=== PATIENT | female | born 1945 | race Caucasian/White ===

== ENCOUNTER → 2016-12-13 | Outpatient (CLI) | payer MEDICARE, BC ==
--- NOTE | 2016-12-17 12:48 | MM ---
Reason for exam: clinical finding. Last mammogram was performed 2 years and 5 months ago. History: Patient is postmenopausal. Reductions of both breasts, September 2009. Took estrogen for 6 years. Took progesterone for 6 years. Indicated problem(s): lump or thickening in the right breast. Physical Findings: Nurse did not find any significant physical abnormalities on exam. MG 3D Diag Mammo W/Cad NIVIA Bilateral CC and MLO view(s) were taken. XCCL view(s) were taken of the left breast. Prior study comparison: July 01, 2014, bilateral MG screening mammo w CAD. June 30, 2013, bilateral digital screening mammo w/CAD. June 29, 2012, CAD bilateral diagnostic mammogram. June 28, 2011, CAD bilateral diagnostic mammogram. There are scattered fibroglandular densities. Post mammoplasty changes bilaterally. Stable areas of asymmetric densities. No significant new findings when compared with previous films. These results were verbally communicated with the patient and result sheet given to the patient on 12/13/16. ASSESSMENT: Negative, BI-RAD 1 RECOMMENDATION: 1. Routine screening mammogram of both breasts in 1 year. 2. Manage patient on a clinical basis with regard to patient's right superior axillary palpable area that seems to correspond to an inflamed cutaneous lesion. 3. If any persisting palpable finding following treatment, patient can return for ultrasound. SAMI
== END | disposition home or self-care (01) ==
LOC: RADMAMWWP 06:56
PROVIDERS: ATTEND Family Medicine
DX: N63 Unspecified lump in breast (principal)
CPT/HCPCS: G0204; G0279

== ENCOUNTER 2017-11-14 11:48 | Inpatient (IN) | payer MEDICARE, BC ==
[2017-11-14] MEDS ORDERED: ACETAMINOPHEN TAB 500 MG TAB PO STA (12:48)
[2017-11-14] MEDS ORDERED: IPRATROPIUM-ALBUTEROL 3 ML NEB INHALATION STA (12:50)
[2017-11-14] MEDS ORDERED: SODIUM CHLORIDE 0.9% 1,500 ML IV ONE (12:51)
--- NOTE | 2017-11-14 12:52 | ED ---
SOB HPI - General Chief Complaint: Shortness of Breath Stated Complaint: Coughing up Blood, Pneumonia Time Seen by Provider: 11/14/17 12:32 Source: patient Mode of arrival: wheelchair Limitations: no limitations - History of Present Illness Initial Comments: Patient is a 72-year-old female presenting to the emergency department for shortness of breath. She was seen on Friday in urgent care and diagnosed with pneumonia. She was started on azithromycin and family states that since that time, she has been worsening. She admits to some chest pain with coughing only as well as fevers and chills. The shortness of breath has been worsening and she denies any abdominal complaints including nausea/vomiting/diarrhea or abdominal pain. She was seen in urgent care today and was advised to come emergency department for further evaluation. - Related Data Home Medications Medication Instructions Recorded Confirmed Acetaminophen Tab [Tylenol Tab] 1,000 mg PO BID 11/14/17 11/14/17 Aspirin EC [Ecotrin Low Dose] 81 mg PO DAILY 11/14/17 11/14/17 Benzonatate [Tessalon Perles] 100 mg PO TID PRN 11/14/17 11/14/17 Docusate [Colace] 100 mg PO HS 11/14/17 11/14/17 Furosemide [Lasix] 20 mg PO DAILY 11/14/17 11/14/17 Ipratropium [place] 0.06%Nasal 2 spray EA NOSTRIL QID PRN 11/14/17 11/14/17 [Atrovent Nasal 0.06%] Levothyroxine Sodium 25 mcg PO DAILY 11/14/17 11/14/17 Perindopril Erbumine [Aceon] 4 mg PO DAILY 11/14/17 11/14/17 Sertraline HCl [Zoloft] 50 mg PO DAILY 11/14/17 11/14/17 amLODIPine/ATORVASTATIN [Caduet 10 1 tab PO HS 11/14/17 11/14/17 mg-10 mg Tablet] Allergies Allergy/AdvReac Type Severity Reaction Status Date / Time chlorpheniramine Allergy Rash/Hives Verified 11/14/17 12:51 [From Tussionex] hydrocodone [From Tussionex] Allergy Rash/Hives Verified 11/14/17 12:51 Sulfa (Sulfonamide Allergy Rapid Verified 11/14/17 12:51 Antibiotics) Heart Rate amoxicillin AdvReac Nausea & Verified 11/14/17 12:51 Vomiting & Diarrhea Review of Systems ROS Statement: Those systems with pertinent positive or pertinent negative responses have been documented in the HPI. Constitutional: Negative for chills, fatigue and fever. HENT: Negative for congestion. Respiratory: Negative for chest tightness and wheezing. Positive for cough and shortness of breath Cardiovascular: Negative for and palpitations.positive for chest pain Gastrointestinal: Negative for abdominal pain. Negative for abdominal distention , diarrhea, nausea and vomiting. Genitourinary: Negative for dysuria. Musculoskeletal: Negative for back pain, neck pain and neck stiffness. Skin: Negative for color change. Neurological: Negative for dizziness, speech difficulty, weakness and light- headedness. Psychiatric/Behavioral: Negative for agitation and confusion. The patient is not nervous/anxious. ROS Other: All systems not noted in ROS Statement are negative. Past Medical History Past Medical History: Hyperlipidemia, Hypertension, Thyroid Disorder History of Any Multi-Drug Resistant Organisms: MRSA Date of last positivie culture/infection: Back in 2014 Past Surgical History: Tonsillectomy Additional Past Surgical History / Comment(s): Kidney repair, lower jaw surgery , carpal tunnel surgery, breast reduction, shoulder replacement Past Psychological History: Depression Smoking Status: Former smoker Past Alcohol Use History: None Reported Past Drug Use History: None Reported General Exam - General Exam Comments Initial Comments: Physical Exam Constitutional: Pt is oriented to person, place, and time. Pt appears well- developed and well-nourished. No distress. HENT: Head: Normocephalic and atraumatic. Eyes: EOM are normal. Neck: Normal range of motion. Neck supple. Cardiovascular: Tachycardia present, regular rhythm, S1 normal, S2 normal and normal heart sounds. Exam reveals no gallop and no friction rub. No murmur heard. Pulmonary/Chest: Effort normal and breath sounds normal. No tachypnea and no bradypnea. No respiratory distress. No wheezes or rales noted. Abdominal: Soft. Bowel sounds are normal. Pt exhibits no shifting dullness, no distension, no pulsatile liver, no fluid wave, no abdominal bruit and no ascites. There is no tenderness. There is no rigidity, no rebound, no guarding, no tenderness at McBurney's point and negative Abdul's sign. Musculoskeletal: Normal range of motion. Neurological: Pt is alert and oriented to person, place, and time. No cranial nerve deficit. Skin: Skin is warm and dry. No rash noted. Pt is not diaphoretic. No erythema. No pallor. Psychiatric: Pt has a normal mood and affect. Pt behavior is normal. Thought content normal. Limitations: no limitations Course Vital Signs 11/14/17 11/14/17 11/14/17 12:20 13:28 13:55 Temperature 100.1 F H Pulse Rate 112 H 78 80 Respiratory 20 16 Rate Blood Pressure 142/79 O2 Sat by Pulse 93 L 96 Oximetry 11/14/17 14:05 Temperature Pulse Rate 85 Respiratory Rate Blood Pressure O2 Sat by Pulse Oximetry Medical Decision Making - Medical Decision Making Laboratory studies revealed that there is no significant leukocytosis and potassium was slightly low at 3.2. Additionally as it was not elevated. Outside chest x-ray showed possible infiltrate on the right lower side and therefore the patient was started on Rocephin and azithromycin. Additionally, patient did test influenza be positive but was out of the window for Tamiflu treatment. However, the patient was fairly tachypnea upon arrival to the emergency Department and tachycardic as well. She received a 1.5 L bolus and 30 mL per KG bolus was not initiated as her heart status was unknown. Because of her age as well as Felty, it is felt that the patient is at risk for acute decompensation if discharge. Therefore she will be placed in observation for continued treatment. - Lab Data Result diagrams: 11/14/17 13:20 11/14/17 13:20 Lab Results 11/14/17 11/14/17 11/14/17 Range/Units 13:20 13:20 13:20 WBC 5.9 (3.8-10.6) k/uL RBC 3.71 L (3.80-5.40) m/uL Hgb 11.8 (11.4-16.0) gm/dL Hct 34.5 (34.0-46.0) % MCV 93.1 (80.0-100.0) fL MCH 31.8 (25.0-35.0) pg MCHC 34.2 (31.0-37.0) g/dL RDW 12.9 (11.5-15.5) % Plt Count 194 (150-450) k/uL Neutrophils % 77 % Lymphocytes % 12 % Monocytes % 7 % Eosinophils % 1 % Basophils % 0 % Neutrophils # 4.5 (1.3-7.7) k/uL Lymphocytes # 0.7 L (1.0-4.8) k/uL Monocytes # 0.4 (0-1.0) k/uL Eosinophils # 0.0 (0-0.7) k/uL Basophils # 0.0 (0-0.2) k/uL PT (9.0-12.0) sec INR (<1.2) APTT (22.0-30.0) sec Sodium 142 (137-145) mmol/L Potassium 3.2 L (3.5-5.1) mmol/L Chloride 104 (98-107) mmol/L Carbon Dioxide 21 L (22-30) mmol/L Anion Gap 17 mmol/L BUN 10 (7-17) mg/dL Creatinine 0.63 (0.52-1.04) mg/dL Est GFR (CKD-EPI)AfAm >90 (>60 ml/min/1.73 sqM) Est GFR (CKD-EPI)NonAf >90 (>60 ml/min/1.73 sqM) Glucose 84 (74-99) mg/dL Plasma Lactic Acid Brain (0.7-2.0) mmol/L Calcium 8.7 (8.4-10.2) mg/dL Total Bilirubin 0.5 (0.2-1.3) mg/dL AST 20 (14-36) U/L ALT 24 (9-52) U/L Alkaline Phosphatase 92 (38-126) U/L Troponin I (0.000-0.034) ng/mL Total Protein 6.6 (6.3-8.2) g/dL Albumin 3.9 (3.5-5.0) g/dL Influenza Type A RNA Not Detected (Not Detectd) Influenza Type B (PCR) Detected H (Not Detectd) 11/14/17 11/14/17 11/14/17 Range/Units 13:20 13:20 13:20 WBC (3.8-10.6) k/uL RBC (3.80-5.40) m/uL Hgb (11.4-16.0) gm/dL Hct (34.0-46.0) % MCV (80.0-100.0) fL MCH (25.0-35.0) pg MCHC (31.0-37.0) g/dL RDW (11.5-15.5) % Plt Count (150-450) k/uL Neutrophils % % Lymphocytes % % Monocytes % % Eosinophils % % Basophils % % Neutrophils # (1.3-7.7) k/uL Lymphocytes # (1.0-4.8) k/uL Monocytes # (0-1.0) k/uL Eosinophils # (0-0.7) k/uL Basophils # (0-0.2) k/uL PT 9.5 (9.0-12.0) sec INR 0.9 (<1.2) APTT 23.4 (22.0-30.0) sec Sodium (137-145) mmol/L Potassium (3.5-5.1) mmol/L Chloride (98-107) mmol/L Carbon Dioxide (22-30) mmol/L Anion Gap mmol/L BUN (7-17) mg/dL Creatinine (0.52-1.04) mg/dL Est GFR (CKD-EPI)AfAm (>60 ml/min/1.73 sqM) Est GFR (CKD-EPI)NonAf (>60 ml/min/1.73 sqM) Glucose (74-99) mg/dL Plasma Lactic Acid Brain 0.9 (0.7-2.0) mmol/L Calcium (8.4-10.2) mg/dL Total Bilirubin (0.2-1.3) mg/dL AST (14-36) U/L ALT (9-52) U/L Alkaline Phosphatase (38-126) U/L Troponin I <0.012 (0.000-0.034) ng/mL Total Protein (6.3-8.2) g/dL Albumin (3.5-5.0) g/dL Influenza Type A RNA (Not Detectd) Influenza Type B (PCR) (Not Detectd) - EKG Data EKG Comments: EKG shows normal sinus rhythm. Ventricular rate 79 bpm, IA interval 142, QRS 96 , QTC 458. There is no significant ST depressions or elevations. Disposition Clinical Impression: Community acquired pneumonia, Influenza B Disposition: ADMITTED IP TO THIS HOSP Condition: Fair Referrals: Niko Chen MD [Primary Care Provider] - 1-2 days Time of Disposition: 14:55 Decision to Admit Reason: Admit from EC Decision Date: 11/14/17 Decision Time: 14:55
[2017-11-14] MEDS ORDERED: SODIUM CHLORIDE 0.9% 500 ML IV SCH (13:00)
[2017-11-14] MEDS: SODIUM CHLORIDE 0.9% 1,000 ML IV SCH (13:27)
[2017-11-14 13:38] LABS: Basophils % (A) 0 %; Eosinophils % (A) 1 %; HCT 34.5 % (34.0-46.0); HGB 11.8 gm/dL (11.4-16.0); Lymphocytes # (A) 0.7 k/uL (1.0-4.8); Lymphocytes % (A) 12 %; MCH 31.8 pg (25.0-35.0); MCHC 34.2 g/dL (31.0-37.0); MCV 93.1 fL (80.0-100.0); Mean Platelet Volume 7.5; Monocytes # (A) 0.4 k/uL (0-1.0); Monocytes % (A) 7 %; Neutrophils # (A) 4.5 k/uL (1.3-7.7); Neutrophils % (A) 77 %; Platelet Count 194 k/uL (150-450); RBC 3.71 m/uL (3.80-5.40); RDW 12.9 % (11.5-15.5); WBC 5.9 k/uL (3.8-10.6)
[2017-11-14 13:45] LABS: INR 0.9 (<1.2); Partial Thromboplastin Time 23.4 sec (22.0-30.0); Prothrombin Time 9.5 sec (9.0-12.0)
[2017-11-14 13:48] LABS: ALT 24 U/L (9-52); AST 20 U/L (14-36); Albumin 3.9 g/dL (3.5-5.0); Alkaline Phosphatase 92 U/L (38-126); Anion Gap 17 mmol/L; Blood Urea Nitrogen 10 mg/dL (7-17); Calcium 8.7 mg/dL (8.4-10.2); Carbon Dioxide 21 mmol/L (22-30); Chloride 104 mmol/L (98-107); Glucose 84 mg/dL (74-99); Potassium 3.2 mmol/L (3.5-5.1); Sodium 142 mmol/L (137-145); Total Bilirubin 0.5 mg/dL (0.2-1.3); Total Protein 6.6 g/dL (6.3-8.2)
[2017-11-14] MEDS ORDERED: AZITHROMYCIN 500 MG TAB PO STA (14:23)
[2017-11-14] MEDS ORDERED: cefTRIAXone IN SWFI 1,000 MG/10 ML SYRINGE IVP STA (14:25)
[2017-11-14] MEDS ORDERED: NALOXONE 0.4 MG/ML 1 ML VIAL IV PRN (14:56)
[2017-11-14] MEDS ORDERED: IPRATROPIUM BROMIDE 0.06% NASAL SPRAY (15 ML) EA NOSTRIL PRN (20:04)
[2017-11-14] MEDS: ACETAMINOPHEN TAB 500 MG TAB PO SCH (20:22)
[2017-11-14] MEDS ORDERED: amLODIPine 10 MG TAB PO SCH (21:00)
[2017-11-14] MEDS ORDERED: DOCUSATE 100 MG CAP PO SCH (21:00)
[2017-11-14] MEDS ORDERED: ATORVASTATIN 10 MG TAB PO SCH (21:00)
[2017-11-14] MEDS: BENZONATATE 100 MG CAP PO PRN (21:34)
[2017-11-15] MEDS ORDERED: LEVOTHYROXINE 25 MCG TAB PO SCH (06:30)
[2017-11-15] MEDS: ACETAMINOPHEN TAB 500 MG TAB PO SCH (07:46)
[2017-11-15] MEDS: BENZONATATE 100 MG CAP PO PRN (08:17)
[2017-11-15] MEDS ORDERED: FUROSEMIDE 20 MG TAB PO SCH (09:00)
[2017-11-15] MEDS ORDERED: ASPIRIN 81 MG PO SCH (09:00)
[2017-11-15] MEDS ORDERED: SERTRALINE 50 MG TAB PO SCH (09:00)
[2017-11-15] MEDS ORDERED: cefTRIAXone IN SWFI 1,000 MG/10 ML SYRINGE IVP SCH (09:00)
[2017-11-15] MEDS ORDERED: LISINOPRIL 10 MG TAB PO SCH (09:00)
[2017-11-15 09:01] VITALS: BP 147/78; RESP 16; TEMP 97.8
[2017-11-15] MEDS ORDERED: IPRATROPIUM-ALBUTEROL 3 ML NEB INHALATION PRN (09:25)
[2017-11-15] MEDS ORDERED: POTASSIUM CHLORIDE ER 20 MEQ TAB.ER PO STA (09:52)
--- NOTE | 2017-11-15 10:05 | P.HPIM ---
History of Present Illness Patient is 72-year-old female was brought to the emergency department with compensative shortness of breath. Patient is saturating well now does have good air entry into bilateral lung villaseñor no wheezing was appreciated. Patient is found to have influenza B was diagnosed as pneumonia in the right lower lung villaseñor although patient does not have any bronchophony egophony or crackles on clinical exam. No chest x-rays available will obtain a chest x-ray a chest x- ray doesn't show any pneumonic process patient will be discharged on doxycycline and patient does have complaints of fever chills cough with the a little brownish sputum production. Symptoms has been going on since last on her way here from [place]. Patient appears to have influenza bronchitis although Tamiflu will not help because of the symptom duration which is longer than 48 hours. Although there is a concern for secondary bacterial bronchitis, patient will be discharged on that setting as the and will be discontinued. It appears patient's main concern is cough. Review of Systems REVIEW OF SYSTEMS: CONSTITUTIONAL: No fever, no malaise, no fatigue. HEENT: No recent visual problems or hearing problems. Denied any sore throat. CARDIOVASCULAR: No chest pain, orthopnea, PND, no palpitations, no syncope. PULMONARY: As mentioned in HPI GASTROINTESTINAL: No diarrhea, no nausea, no vomiting, no abdominal pain. Normoactive bowel sounds. NEUROLOGICAL: No headaches, no weakness, no numbness. HEMATOLOGICAL: Denies any bleeding or petechiae. GENITOURINARY: Denies any burning micturition, frequency, or urgency. MUSCULOSKELETAL/RHEUMATOLOGICAL: Denies any joint pain, swelling, or any muscle pain. ENDOCRINE: Denies any polyuria or polydipsia. The rest of the 14-point review of systems is negative. 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 approx 2002 was on inhalors for ? asthma but has'nt been on inhalors for 14 years. pt stated "she is a mrsa carrier" History of Any Multi-Drug Resistant Organisms: None Reported Date of last positivie culture/infection: Back in 2014 Past Surgical History: Tonsillectomy Additional Past Surgical History / Comment(s): rtKidney/ureter repair, lower jaw surgery has metal implant and screws, jorden; carpal tunnel, breast reduction, rt shoulder replaement, back sx has soledad, hemorroidectomy/spincter sx. Past Anesthesia/Blood Transfusion Reactions: No Reported Reaction Additional Past Anesthesia/Blood Transfusion Reaction / Comment(s): clausterphobia. past blood transfuiosn-no reaction. Smoking Status: Former smoker - Past Family History Father Family Medical History: Cancer Additional Family Medical History / Comment(s): was a smoker. at age 59 from lung cancer Mother Family Medical History: CVA/TIA, Diabetes Mellitus Additional Family Medical History / Comment(s): "heart problems" Medications and Allergies Home Medications Medication Instructions Recorded Confirmed Type Acetaminophen Tab [Tylenol] 1,000 mg PO BID 11/14/17 11/14/17 History Aspirin EC [Ecotrin Low Dose] 81 mg PO DAILY 11/14/17 11/14/17 History Docusate [Colace] 100 mg PO HS 11/14/17 11/14/17 History Furosemide [Lasix] 20 mg PO DAILY 11/14/17 11/14/17 History Ipratropium [place] 0.06%Nasal 2 spray EA NOSTRIL QID PRN 11/14/17 11/14/17 History [Atrovent Nasal 0.06%] Levothyroxine Sodium 25 mcg PO DAILY 11/14/17 11/14/17 History Perindopril Erbumine [Aceon] 4 mg PO DAILY 11/14/17 11/14/17 History Sertraline HCl [Zoloft] 50 mg PO DAILY 11/14/17 11/14/17 History amLODIPine/ATORVASTATIN [Caduet 10 1 tab PO HS 11/14/17 11/14/17 History mg-10 mg Tablet] Albuterol Inhaler [Ventolin Hfa 1 - 2 puff INHALATION Q6HR PRN #1 11/15/17 Rx Inhaler] inhaler Benzonatate [Tessalon Perles] 100 mg PO TID PRN #20 cap 11/15/17 Rx Doxycycline Monohydrate [Monodox] 100 mg PO Q12HR #6 cap 11/15/17 Rx Potassium Chloride ER [K-Dur 10] 10 meq PO DAILY #30 tab 11/15/17 Rx Allergies Allergy/AdvReac Type Severity Reaction Status Date / Time chlorpheniramine Allergy Rash/Hives Verified 11/14/17 12:51 [From Tussionex] hydrocodone [From Tussionex] Allergy Rash/Hives Verified 11/14/17 12:51 Sulfa (Sulfonamide Allergy Rapid Verified 11/14/17 12:51 Antibiotics) Heart Rate amoxicillin AdvReac Nausea & Verified 11/14/17 12:51 Vomiting & Diarrhea Physical Exam Vitals: Vital Signs Temp Pulse Pulse Resp BP BP Pulse Ox 11/15/17 08:00 16 11/15/17 07:52 95 11/15/17 07:00 97.8 F 120 H 16 147/78 94 L 11/15/17 06:17 65 134/77 11/14/17 20:43 97.6 F 73 18 140/72 95 11/14/17 17:17 83 18 11/14/17 15:43 97.9 F 83 18 137/72 95 11/14/17 14:59 98.0 F 82 16 153/82 96 11/14/17 14:05 85 11/14/17 13:55 80 11/14/17 13:28 78 16 96 11/14/17 12:20 100.1 F H 112 H 20 142/79 93 L Intake and Output 11/14/17 11/15/17 11/15/17 22:59 06:59 14:59 Other: Voiding Method Toilet Toilet # Voids 1 2 PHYSICAL EXAMINATION: GENERAL: The patient is alert and oriented x3, not in any acute distress. Well developed, well nourished. HEENT: Pupils are round and equally reacting to light. EOMI. No scleral icterus. No conjunctival pallor. Normocephalic, atraumatic. Patient does have mild pharyngeal erythema without any transudate or exudate. No thyromegaly. CARDIOVASCULAR: S1 and S2 present. No murmurs, rubs, or gallops. PULMONARY: Chest is clear to auscultation, no wheezing or crackles. ABDOMEN: Soft, nontender, nondistended, normoactive bowel sounds. No palpable organomegaly. MUSCULOSKELETAL: No joint swelling or deformity. EXTREMITIES: No cyanosis, clubbing, or pedal edema. NEUROLOGICAL: Gross neurological examination did not reveal any focal deficits. SKIN: No rashes. Results CBC & Chem 7: 11/14/17 13:20 11/14/17 13:20 Labs: Abnormal Lab Results - Last 24 Hours (Table) 11/14/17 11/14/17 11/14/17 Range/Units 13:20 13:20 13:20 RBC 3.71 L (3.80-5.40) m/uL Lymphocytes # 0.7 L (1.0-4.8) k/uL Potassium 3.2 L (3.5-5.1) mmol/L Carbon Dioxide 21 L (22-30) mmol/L Influenza Type B (PCR) Detected H (Not Detectd) Thrombosis Risk Factor Assmnt - Choose All That Apply Any of the Below Risk Factors Present?: Yes Each Factor Represents 1 point: Obesity (BMI >25) Other Risk Factors: Yes Each Risk Factor Represents 2 Points: Age 61-74 years Thrombosis Risk Factor Assessment Total Risk Factor Score: 3 Thrombosis Risk Factor Assessment Level: Moderate Risk Assessment and Plan Plan: -Bronchitis: Secondary to influenza my suspicion is low for bacterial pneumonia. -Shortness of breath secondary to bronchitis, cannot completely rule out secondary bacterial infection. -Hypertension -Hyperlipidemia -Hypothyroidism -Hypokalemia: Secondary to Lasix potassium will be supplemented will be discharged on 10 mg of oral potassium supplementation because patient is taking 20 mg of Lasix at home Patient will be discharged today on doxycycline albuterol inhaler
--- NOTE | 2017-11-15 10:05 | P.DS ---
Providers Date of admission: 11/14/17 14:58 Attending physician: Niko Chen Primary care physician: Niko Chen Hospital Course: Please refer to my HPI Patient Condition at Discharge: Fair Plan - Discharge Summary Discharge Rx Participant: No New Discharge Prescriptions: New Doxycycline Monohydrate [Monodox] 100 mg PO Q12HR #6 cap Albuterol Inhaler [Ventolin Hfa Inhaler] 1 - 2 puff INHALATION Q6HR PRN #1 inhaler PRN Reason: Shortness Of Breath Or Wheezing Potassium Chloride ER [K-Dur 10] 10 meq PO DAILY #30 tab Continue Ipratropium [place] 0.06%Nasal [Atrovent Nasal 0.06%] 2 spray EA NOSTRIL QID PRN PRN Reason: Congestion amLODIPine/ATORVASTATIN [Caduet 10 mg-10 mg Tablet] 1 tab PO HS Sertraline HCl [Zoloft] 50 mg PO DAILY Docusate [Colace] 100 mg PO HS Aspirin EC [Ecotrin Low Dose] 81 mg PO DAILY Acetaminophen Tab [Tylenol] 1,000 mg PO BID Perindopril Erbumine [Aceon] 4 mg PO DAILY Levothyroxine Sodium 25 mcg PO DAILY Furosemide [Lasix] 20 mg PO DAILY Benzonatate [Tessalon Perles] 100 mg PO TID PRN #20 cap PRN Reason: Cough Discharge Medication List Acetaminophen Tab [Tylenol] 1,000 mg PO BID 11/14/17 [History] Aspirin EC [Ecotrin Low Dose] 81 mg PO DAILY 11/14/17 [History] Docusate [Colace] 100 mg PO HS 11/14/17 [History] Furosemide [Lasix] 20 mg PO DAILY 11/14/17 [History] Ipratropium [place] 0.06%Nasal [Atrovent Nasal 0.06%] 2 spray EA NOSTRIL QID PRN 11/14/17 [History] Levothyroxine Sodium 25 mcg PO DAILY 11/14/17 [History] Perindopril Erbumine [Aceon] 4 mg PO DAILY 11/14/17 [History] Sertraline HCl [Zoloft] 50 mg PO DAILY 11/14/17 [History] amLODIPine/ATORVASTATIN [Caduet 10 mg-10 mg Tablet] 1 tab PO HS 11/14/17 [ History] Albuterol Inhaler [Ventolin Hfa Inhaler] 1 - 2 puff INHALATION Q6HR PRN #1 inhaler 11/15/17 [Rx] Benzonatate [Tessalon Perles] 100 mg PO TID PRN #20 cap 11/15/17 [Rx] Doxycycline Monohydrate [Monodox] 100 mg PO Q12HR #6 cap 11/15/17 [Rx] Potassium Chloride ER [K-Dur 10] 10 meq PO DAILY #30 tab 11/15/17 [Rx] Follow up Appointment(s)/Referral(s): Niko Chen MD [Primary Care Provider] - 3 Days Discharge Disposition: HOME SELF-CARE
--- NOTE | 2017-11-15 11:29 | XR ---
EXAMINATION TYPE: XR chest 2V DATE OF EXAM: 11/15/2017 HISTORY: r/o Pneumonia. REFERENCE: Chest radiographs dated 11/14/2017. FINDINGS: There is a right shoulder prosthesis in place. There has been previous interpedicular fusio n of the lumbar spine. The lungs are clear. Pleural spaces are clear. The heart is mildly enlarged. Note is made of moderate degenerative change in the left shoulder. IMPRESSION: 1. NO ACUTE INTRATHORACIC ABNORMALITY. 2. MILD CARDIOMEGALY. 3. POSTSURGICAL CHANGE.
[2017-11-15] MEDS: SODIUM CHLORIDE 0.9% 1,000 ML IV SCH (11:47)
[2017-11-15] MEDS: IPRATROPIUM-ALBUTEROL 3 ML NEB INHALATION SCH ×2 (13:14→13:18)
[2017-11-15 13:39] VITALS: PULSE 88
== END 2017-11-15 14:25 | disposition home or self-care (01) | DRG 195 ==
LOC: EC 11:48 → 5MS5E 14:58
PROVIDERS: ADMIT Family Medicine; ATTEND Family Medicine
DX: J10.1 Influenza due to other identified influenza virus with other respiratory manifestations (principal); J20.8 Acute bronchitis due to other specified organisms; J40 Bronchitis, not specified as acute or chronic; E87.6 Hypokalemia; T50.1X5A Adverse effect of loop [high-ceiling] diuretics, initial encounter; J45.909 Unspecified asthma, uncomplicated; I10 Essential (primary) hypertension; E78.5 Hyperlipidemia, unspecified; E03.9 Hypothyroidism, unspecified; F32.9 Major depressive disorder, single episode, unspecified; M21.372 Foot drop, left foot; M21.371 Foot drop, right foot; H26.9 Unspecified cataract; Z79.82 Long term (current) use of aspirin; Z79.890 Hormone replacement therapy; Z22.322 Carrier or suspected carrier of Methicillin resistant Staphylococcus aureus; Z79.899 Other long term (current) drug therapy; Z87.891 Personal history of nicotine dependence; Z96.611 Presence of right artificial shoulder joint; Z88.5 Allergy status to narcotic agent; Z88.0 Allergy status to penicillin; Z88.2 Allergy status to sulfonamides; Z88.8 Allergy status to other drugs, medicaments and biological substances; Z80.1 Family history of malignant neoplasm of trachea, bronchus and lung; Z83.3 Family history of diabetes mellitus; Z82.3 Family history of stroke; Z82.49 Family history of ischemic heart disease and other diseases of the circulatory system
CPT/HCPCS: 36415; 71046; 80053; 83605; 84484; 85025; 85610; 85730; 87040; 87502; 93005; 94640; 94760; 96361; 96374; 99285

== ENCOUNTER → 2017-12-16 | Outpatient (CLI) | payer MEDICARE, BC ==
--- NOTE | 2017-12-16 14:52 | BD ---
EXAMINATION TYPE: Axial Bone Density DATE OF EXAM: 12/16/2017 COMPARISON: 06.29.2012 CLINICAL HISTORY: 72 YR OLD FEMALE....ICD-10 CODE Z78.0 POST MENOPAUSAL W/O HRT Height: 63.4 Weight: 191 FRAX RISK QUESTIONS: Family History (Parent hip fracture): NOT HIPS, BUT BOTH KNEES AND ARMS History of Fracture in Adulthood: YES RISK FACTORS HISTORY OF: FX HX: OF BOTH ANKLES, AND BOTH FEET ADULT > 50 YRS Surgery to Spine RODS AND SCREWS/PINS When: 2014 Family History of Osteoporosis: YES, HER MOTHER WITH BOTH KNEES BROKEN AND ARM Active: NO, USES WALKER Diet low in dairy products/other sources of calcium: NO Postmenopausal woman: YES, AT 55 YRS OLD Take estrogen and/or progesterone medications: TOTAL OF 6 YRS IN PAST....NONE NOW Lost more than 2 inches in height since high school: YES Frequent falls: UNSTEADY MEDICATIONS: Prednisone or other steroids: LAST MO PREDNISONE, AND INHALERS FOR LUNGS Thyroid Medications: YES,SYNTHROID, 25 YRS Additional Medications: CALCIUM AND VIT D, BP MEDS, ZOLOFT, STAIN FOR CHOLESTEROL, REFLUX MEDS Additional History: RODS AND PINS L1-S1....OLD PELVIC FRACTURES, TOTAL RT SHOULDER, ARTHRITIS EXAM MEASUREMENTS: Bone mineral densitometry was performed using the [employer] System. Bone mineral density as measured about the Lumbar spine is: RODS AND PINS IN SPINE.....NOT SCANNED Bone mineral density about the R hip (g/cm2): 0.983 Bone mineral density about the L hip (g/cm2): 0.893 T Score values are as follows: -----R Neck: 0.2 -----L Neck: -0.9 -----R Total: -0.2 -----L Total: -0.9 Bone mineral density has: Decreased -4.7% since study of: 06.29.2012 FRAX%S: THERE IS A 13.4% CHANCE OF A MAJOR OSTEOPOROTIC FX AND A 1.4% FOR HIP FX.....PROBABILITY OF FX IN 10 YRS TIME Bone mineral density about the L Wrist (g/cm2): 0.596 T Score values are as follows: -----Dist. R+U: 0.1 -----Prox. R+U: -.0.1 -----Radius total: -1.0 Bone mineral density FIRST TIME LT FOREARM SCANNED..... IMPRESSION: Osteopenia distal radius. NOTE: T-SCORE=SD OF THE YOUNG ADULT MEAN.
--- NOTE | 2017-12-18 12:39 | MM ---
Reason for exam: screening (asymptomatic). Last mammogram was performed 1 year ago. History: Patient is postmenopausal. Reductions of both breasts, September 2009. Took estrogen for 6 years. Took progesterone for 6 years. Physical Findings: A clinical breast exam by your physician is recommended on an annual basis and results should be correlated with mammographic findings. MG 3D Screening Mammo W/Cad Bilateral CC and MLO view(s) were taken. Prior study comparison: December 13, 2016, bilateral MG 3d diag mammo w/cad NIVIA. July 01, 2014, bilateral MG screening mammo w CAD. The breast tissue is heterogeneously dense. This may lower the sensitivity of mammography. No significant changes when compared with prior studies. ASSESSMENT: Benign, BI-RAD 2 RECOMMENDATION: Routine screening mammogram of both breasts in 1 year.
== END | disposition home or self-care (01) ==
LOC: RADMAMWWP 12:26
PROVIDERS: ATTEND Family Medicine
DX: Z12.31 Encounter for screening mammogram for malignant neoplasm of breast (principal); M85.88 Other specified disorders of bone density and structure, other site; Z78.0 Asymptomatic menopausal state
CPT/HCPCS: 77063; 77067; 77080

== ENCOUNTER → 2019-03-24 | Outpatient (CLI) | payer MEDICARE ==
[2019-03-24 11:19] LABS: Basophils % (A) 1 %; Eosinophils # (A) 0.1 k/uL (0-0.7); Eosinophils % (A) 3 %; HCT 40.3 % (34.0-46.0); HGB 13.2 gm/dL (11.4-16.0); Lymphocytes # (A) 0.8 k/uL (1.0-4.8); Lymphocytes % (A) 22 %; MCHC 32.7 g/dL (31.0-37.0); MCV 97.8 fL (80.0-100.0); Mean Platelet Volume 7.7; Monocytes # (A) 0.4 k/uL (0-1.0); Monocytes % (A) 10 %; Neutrophils # (A) 2.3 k/uL (1.3-7.7); Neutrophils % (A) 61 %; Platelet Count 264 k/uL (150-450); RBC 4.12 m/uL (3.80-5.40); RDW 14.2 % (11.5-15.5); WBC 3.7 k/uL (3.8-10.6)
[2019-03-24 16:50] LABS: African American GFR (CKD) 85.4 (60.0-200.0); Albumin 4.7 g/dL (3.80-4.90); Albumin/Globulin Ratio 2.61 (1.60-3.17); Anion Gap 10.8 mmol/L (4.00-12.00); BUN/Creat Ratio 17.5 Ratio (12.00-20.00); Calcium 9.7 mg/dL (8.7-10.3); Carbon Dioxide 25.2 mmol/L (21.6-31.8); Chol/HDL Ratio 2.61; Globulin 1.8 g/dL (1.6-3.3); Potassium 4.1 mmol/L (3.5-5.5); Total Bilirubin 0.4 mg/dL (0.2-1.2); Total Protein 6.5 g/dL (6.2-8.2)
[2019-03-24 16:58] LABS: T4, Free (Free Thyroxine) 0.9 ng/dL (0.80-1.80)
== END | disposition home or self-care (01) ==
LOC: LABWHC1 09:40
PROVIDERS: ATTEND Nurse Practitioner
DX: E78.5 Hyperlipidemia, unspecified (principal); I10 Essential (primary) hypertension; E03.9 Hypothyroidism, unspecified
CPT/HCPCS: 36415; 80053; 80061; 84439; 84443; 85025; 85379

== ENCOUNTER → 2019-04-20 | Outpatient (CLI) | payer MEDICARE ==
--- NOTE | 2019-04-20 15:44 | US ---
EXAMINATION TYPE: US venous doppler duplex LE DATE OF EXAM: 04/20/2019 3:05 PM COMPARISON: NONE CLINICAL HISTORY: Edema Lower Extremities, R60.00. SIDE PERFORMED: Bilateral TECHNIQUE: The lower extremity deep venous system is examined utilizing real time linear array sonog makeda with graded compression, doppler sonography and color-flow sonography. VESSELS IMAGED: External Iliac Vein (EIV) Common Femoral Vein Deep Femoral Vein Greater Saphenous Vein * Femoral Vein Popliteal Vein Small Saphenous Vein * Proximal Calf Veins (* superficial vessels) Right Leg: Negative for DVT Left Leg: Negative for DVT IMPRESSION: 1. Bilateral lower extremity ultrasound negative for deep venous thrombosis.
== END | disposition home or self-care (01) ==
LOC: RADUSWWP 14:24
PROVIDERS: ATTEND Family Medicine
DX: R60.0 Localized edema (principal); Z88.2 Allergy status to sulfonamides; Z88.8 Allergy status to other drugs, medicaments and biological substances
CPT/HCPCS: 93970

== ENCOUNTER 2020-03-09 08:06 | Day surgery (SDC) | payer MEDICARE ==
[2020-03-06 13:23] VITALS: BMI 35.2
[~2020-03-09 08:06] MED LIST: LACTATED RINGERS 1,000 ML IV SCH
[2020-03-09] MEDS ORDERED: LIDOCAINE 1% (10MG/ML) FOR IV START INTRADERMA ONE (08:48)
[2020-03-09] MEDS ORDERED: LIDOCAINE 1% INJ 10MG/ML (20 ML MDV) ONE (08:51)
[2020-03-09] MEDS ORDERED: PROPOFOL 10 MG/ML 20 ML VIAL IV ONE (08:51)
[2020-03-09 08:52] VITALS: RESP 16; TEMP 96.9
--- NOTE | 2020-03-09 08:57 | P.GSHP ---
History of Present Illness H&P Date: 03/09/20 Chief Complaint: GI bleed This a 74-year-old female who's had issues with rectal bleeding. Patient resents today for colonoscopy. Past Medical History Past Medical History: Eye Disorder, Hyperlipidemia, Hypertension, Thyroid Disorder Additional Past Medical History / Comment(s): Bilateral foot drop due to past back problems, left cataract, hx Asthma, no problems in many years. 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 History of Any Multi-Drug Resistant Organisms: None Reported Date of last positivie culture/infection: Back in 2014 Past Surgical History: Breast Surgery, Tonsillectomy Additional Past Surgical History / Comment(s): Right kidney/ureter repair/stent, lower jaw surgery, has metal implant and screws, bilateral carpal tunnel surgery, breast reduction, right shoulder replacement, back surgery has soledad/cage, hemorroidectomy/spincter surgery. Past Anesthesia/Blood Transfusion Reactions: No Reported Reaction Additional Past Anesthesia/Blood Transfusion Reaction / Comment(s): Clausterphobia. Past blood transfuiosn-no reaction. Smoking Status: Former smoker - Past Family History Father Family Medical History: Cancer Additional Family Medical History / Comment(s): was a smoker. at age 59 from lung cancer Mother Family Medical History: CVA/TIA, Diabetes Mellitus Additional Family Medical History / Comment(s): "heart problems" Medications and Allergies Home Medications Medication Instructions Recorded Confirmed Type Aspirin EC [Ecotrin Low Dose] 81 mg PO DAILY 11/14/17 03/06/20 History Furosemide [Lasix] 20 mg PO QAM 11/14/17 03/06/20 History Perindopril Erbumine [Aceon] 4 mg PO QAM 11/14/17 03/06/20 History Sertraline HCl [Zoloft] 50 mg PO DAILY 11/14/17 03/06/20 History amLODIPine/ATORVASTATIN [Caduet 10 1 tab PO HS 11/14/17 03/06/20 History mg-10 mg Tablet] Eye Drop 1 drop BOTH EYES DAILY 03/06/20 03/06/20 History Fexofenadine/Pseudoephedrine 1 each PO DAILY 03/06/20 03/06/20 History [Mary-D 24 Hour Tablet] Levothyroxine Sodium [Synthroid] 37.5 mcg PO DAILY 03/06/20 03/06/20 History Nasal [place] 1 spray NASAL HS 03/06/20 03/06/20 History Potassium Chloride ER [K-Dur 10] 10 meq PO HS 03/06/20 03/06/20 History Allergies Allergy/AdvReac Type Severity Reaction Status Date / Time chlorpheniramine Allergy Rash/Hives Verified 03/09/20 08:37 [From Tussionex] hydrocodone [From Tussionex] Allergy Rash/Hives Verified 03/09/20 08:37 Sulfa (Sulfonamide Allergy Rapid Verified 03/09/20 08:37 Antibiotics) Heart Rate amoxicillin AdvReac Nausea & Verified 03/09/20 08:37 Vomiting & Diarrhea Surgical - Exam Vital Signs Temp Pulse Resp BP Pulse Ox 96.9 F L 89 16 142/67 95 03/09/20 08:48 03/09/20 08:48 03/09/20 08:48 03/09/20 08:48 03/09/20 08:48 - General well developed, well nourished, no distress - Eyes PERRL - ENT normal pinna - Neck no masses - Respiratory normal expansion - Cardiovascular Rhythm: regular - Abdomen Abdomen: soft, non tender Assessment and Plan Assessment: History of rectal bleeding. We'll perform colonoscopy.
--- NOTE | 2020-03-09 09:08 | P.OP ---
Date of Procedure: 03/09/20 Preoperative Diagnosis: GI bleed Postoperative Diagnosis: Internal and external hemorrhoids Diverticulosis no Procedure(s) Performed: Colonoscopy Anesthesia: MAC Surgeon: Norberto Tavarez Pathology: none sent Condition: stable Disposition: PACU Description of Procedure: The patient's placed on the endoscopy table in the lateral position. She received IV sedation. Digital rectal exam was performed which revealed internal and external hemorrhoids. There is also some anal stenosis. The flexible colon oscope was then placed patient anus passed throughout the entire colon. The ileocecal valve was visualized. The cecum, ascending colon appeared normal. In the transverse and descending colon there was significant diverticulosis. There is no exit diverticulitis. The scope was brought back and sigmoid colon and more diverticular changes were seen. The scope was brought back the rectum and this appeared normal. Scope was withdrawn for patient. It was thought that the patient's GI bleed was due to her significant internal and external hemorrhoids.
[2020-03-09 09:24] VITALS: BP 126/80; PULSE 71
== END 2020-03-09 09:54 | disposition home or self-care (01) ==
LOC: ORWHC2ENDO 08:06
PROVIDERS: ATTEND Surgery
DX: K64.8 Other hemorrhoids (principal); K64.4 Residual hemorrhoidal skin tags; K57.30 Diverticulosis of large intestine without perforation or abscess without bleeding; I10 Essential (primary) hypertension; E78.5 Hyperlipidemia, unspecified; H26.9 Unspecified cataract; J45.909 Unspecified asthma, uncomplicated; E07.9 Disorder of thyroid, unspecified; Z87.891 Personal history of nicotine dependence; Z88.0 Allergy status to penicillin; Z88.2 Allergy status to sulfonamides; Z88.5 Allergy status to narcotic agent; Z79.82 Long term (current) use of aspirin; Z79.890 Hormone replacement therapy; Z79.899 Other long term (current) drug therapy; Z90.89 Acquired absence of other organs; Z96.611 Presence of right artificial shoulder joint; Z98.890 Other specified postprocedural states; Z80.1 Family history of malignant neoplasm of trachea, bronchus and lung; Z83.3 Family history of diabetes mellitus; Z82.49 Family history of ischemic heart disease and other diseases of the circulatory system; Z81.2 Family history of tobacco abuse and dependence
CPT/HCPCS: 45378; J2001; J2704; 45380

== ENCOUNTER → 2022-04-17 | Outpatient (CLI) | payer MEDICARE ==
--- NOTE | 2022-04-18 08:23 | MM ---
Reason for Exam: Screening (asymptomatic). Last mammogram was performed 4 year(s) and 4 month(s) ago. Patient History: Menarche at age 15. First Full-Term at age 17. Postmenopausal. Patient has history of breast feeding. Estrogen for 6 years until age 51. Progesterone for 6 years until age 51. 09/2009, Bilateral Reduction. Risk Values: Claire 5 year model risk: 1.2%. NCI Lifetime model risk: 2.5%. Prior Study Comparison: 07/01/2014 Bilateral Screening Mammogram, [facility]. 12/13/2016 Bilateral Diagnostic Mammogram, [facility]. 12/16/2017 Bilateral Screening Mammogram, [facility]. Tissue Density: The breast tissue is heterogeneously dense. This may lower the sensitivity of mammography. Findings: Analyzed By CAD. There is no suspicious group of microcalcifications or new suspicious mass in either breast. Overall Assessment: Benign, BI-RAD 2 Management: Screening Mammogram of both breasts in 1 year. A clinical breast exam by your physician is recommended on an annual basis and results should be correlated with mammographic findings. Electronically signed and approved by: Regis Wellington M.D. Radiologis
== END | disposition home or self-care (01) ==
LOC: RADMAMWWP 13:41
PROVIDERS: ATTEND Family Medicine
DX: Z12.31 Encounter for screening mammogram for malignant neoplasm of breast (principal); R92.8 Other abnormal and inconclusive findings on diagnostic imaging of breast
CPT/HCPCS: 77063; 77067

== ENCOUNTER → 2022-10-24 | Outpatient (CLI) | payer MEDICARE ==
--- NOTE | 2022-10-25 07:22 | XR ---
EXAMINATION TYPE: XR chest 2V DATE OF EXAM: 10/24/2022 6:10 PM COMPARISON: Chest radiographs from 11/15/2017 TECHNIQUE: XR chest 2V Frontal and lateral views of the chest. CLINICAL INDICATION:Female, 77 years old with history of PNEUMONIA, UNSPECIFIED ORGANISM; FINDINGS: Lungs/Pleura: There is no evidence of pleural effusion, focal consolidation, or pneumothorax. Chroni c senescent parenchymal change. Pulmonary vascularity: Unremarkable. Heart/mediastinum: Cardiomediastinal silhouette is prominent in size. Atherosclerotic calcifications are seen in the aorta. Musculoskeletal: Multiple level degenerative disc disease changes seen throughout the spine. Partial visualization of posterior lumbar fusion hardware and right shoulder prosthesis. IMPRESSION: No acute cardiopulmonary disease/process. No significant change from prior examination.
== END | disposition home or self-care (01) ==
LOC: RADXRMAIN 17:50
PROVIDERS: ATTEND Family Medicine
DX: J18.9 Pneumonia, unspecified organism (principal)
CPT/HCPCS: 71046

== ENCOUNTER → 2023-04-25 | Outpatient (CLI) | payer MEDICARE ==
--- NOTE | 2023-04-28 07:50 | MM ---
Reason for Exam: Screening (asymptomatic). Last mammogram was performed 1 year(s) and 1 month(s) ago. Patient History: Menarche at age 15. First Full-Term at age 17. Postmenopausal. Patient has history of breast feeding. Estrogen for 6 years until age 51. Progesterone for 6 years until age 51. 09/2009, Bilateral Reduction. Risk Values: Claire 5 year model risk: 1.1%. NCI Lifetime model risk: 2.2%. Prior Study Comparison: 12/13/2016 Bilateral Diagnostic Mammogram, [facility]. 12/16/2017 Bilateral Screening Mammogram, [facility]. 04/17/2022 Bilateral MG 3D screening mammo w/cad, [facility]. Tissue Density: The breast tissue is heterogeneously dense. This may lower the sensitivity of mammography. Findings: Analyzed By CAD. There is no suspicious group of microcalcifications or new suspicious mass in either breast. Benign calcifications within both breasts. Overall Assessment: Benign, BI-RAD 2 Management: Screening Mammogram of both breasts in 1 year. A clinical breast exam by your physician is recommended on an annual basis and results should be correlated with mammographic findings. Note on Claire scores and lifetime risk: 1. A Claire score greater than 3% is considered moderate risk. If this is the case, consider specialist referral to assess eligibility for a risk reducing agent. If overall lifetime risk for the development of breast cancer is 20% or higher, the patient may qualify for future screening with alternating mammogram and breast MRI. Electronically signed and approved by: Edmar Rossi D.O.
== END | disposition home or self-care (01) ==
LOC: RADMAMWWP 07:44
PROVIDERS: ATTEND Family Medicine
DX: Z12.31 Encounter for screening mammogram for malignant neoplasm of breast (principal); Z78.0 Asymptomatic menopausal state
CPT/HCPCS: 77063; 77067

== ENCOUNTER → 2023-10-27 | Outpatient (CLI) | payer MEDICARE ==
[2023-10-27 16:32] LABS: ALT 21 U/L (8-44); AST 24 U/L (13-35); Albumin 4.8 g/dL (3.8-4.9); Albumin/Globulin Ratio 1.78 Ratio (1.60-3.17); Alkaline Phosphatase 100 U/L (41-126); BUN/Creat Ratio 18.56 Ratio (12.00-20.00); Blood Urea Nitrogen 16.7 mg/dL (9.0-27.0); Calcium 9.8 mg/dL (8.7-10.3); Carbon Dioxide 24.7 mmol/L (21.6-31.8); Chloride 102 mmol/L (96-109); Globulin 2.7 g/dL (1.6-3.3); Glucose 101 mg/dL (70-110); Potassium 4.1 mmol/L (3.5-5.5); Sodium 140 mmol/L (135-145); T4, Free (Free Thyroxine) 1.07 ng/dL (0.80-1.80); Total Bilirubin 0.4 mg/dL (0.3-1.2); Total Protein 7.5 g/dL (6.2-8.2)
[2023-10-27 17:05] LABS: Basophils # (A) 0.06 X 10*3/uL (0.00-0.10); Basophils % (A) 1.5 %; Eosinophils # (A) 0.08 X 10*3/uL (0.04-0.35); HCT 40.7 % (37.2-46.3); HGB 13.6 g/dL (12.0-15.0); Lymphocytes # (A) 1.22 X 10*3/uL (0.90-5.00); MCHC 33.4 g/dL (32.0-37.0); MCV 95.8 FL (80.0-97.0); Mean Platelet Volume 10.8 FL (9.5-12.2); Monocytes # (A) 0.49 X 10*3/uL (0.20-1.00); Monocytes % (A) 12.4 %; NRBC Per 100 WBC 0 X 10*3/uL (0.00-0.01); Neutrophils # (A) 2.08 X 10*3/uL (1.80-7.70); Neutrophils % (A) 52.8 %; Platelet Count 226 X 10*3/uL (140-440); RBC 4.25 X 10*6/uL (4.10-5.20); RDW 12.4 % (11.5-14.5); WBC 3.94 X 10*3/uL (4.50-10.00)
== END | disposition home or self-care (01) ==
LOC: LABWHC1 12:10
PROVIDERS: ATTEND Family Medicine
DX: R07.89 Other chest pain (principal); I10 Essential (primary) hypertension; E78.5 Hyperlipidemia, unspecified; I25.10 Atherosclerotic heart disease of native coronary artery without angina pectoris
CPT/HCPCS: 36415; 80053; 84439; 84443; 84484; 85025

== ENCOUNTER → 2024-04-28 | Outpatient (CLI) | payer MEDICARE ==
--- NOTE | 2024-04-29 20:10 | MM ---
Reason for Exam: Screening (asymptomatic). Last screening mammogram was performed 12 month(s) ago. Patient History: Menarche at age 15. First Full-Term at age 17. Postmenopausal. Patient has history of breast feeding. Estrogen for 6 years until age 51. Progesterone for 6 years until age 51. 09/2009, Bilateral Reduction. Risk Values: Claire 5 year model risk: 1.1%. NCI Lifetime model risk: 2.0%. Prior Study Comparison: 12/16/2017 Bilateral Screening Mammogram, [facility]. 04/17/2022 Bilateral MG 3D screening mammo w/cad, [facility]. 04/25/2023 Bilateral MG 3D screening mammo w/cad, [facility]. Tissue Density: There are scattered areas of fibroglandular density. Findings: Analyzed By CAD. Bilateral areas of asymmetric density are unchanged. There is no suspicious group of microcalcifications or new suspicious mass in either breast. Overall Assessment: Benign, BI-RAD 2 Management: Screening Mammogram of both breasts in 1 year. . Patient should continue monthly self-breast exams. A clinical breast exam by your physician is recommended on an annual basis. This exam should not preclude additional follow-up of suspicious palpable abnormalities. Note on Claire scores and lifetime risk: 1. A Claire score greater than 3% is considered moderate risk. If this is the case, consider specialist referral to assess eligibility for a risk reducing agent. 2. If overall lifetime risk for the development of breast cancer is 20% or higher, the patient may qualify for future screening with alternating mammogram and breast MRI. [facility], , 04/29/2024 8:08 PM. Electronically signed and approved by: Angelita Moran M.D. Radiologist
== END | disposition home or self-care (01) ==
LOC: RADMAMWWP 11:39
PROVIDERS: ATTEND Family Medicine
CPT/HCPCS: 77063; 77067

== ENCOUNTER → 2024-11-05 | Outpatient (CLI) | payer MEDICARE ==
--- NOTE | 2024-11-05 09:49 | US ---
EXAMINATION TYPE: US venous doppler duplex LE LT DATE OF EXAM: 11/05/2024 9:40 AM COMPARISON: Bilateral lower extremity venous ultrasound 04/20/2019 CLINICAL INDICATION: Female, 79 years old with history of LEFT LOWER R22.42; swelling in left leg aft er having tumeric, no h/o dvt TECHNIQUE: The lower extremity deep venous system is examined utilizing real time linear array sonog makeda with graded compression, color doppler sonography, and spectral doppler. SIDE PERFORMED: :Left FINDINGS: VESSELS IMAGED: Common Femoral Vein Deep Femoral Vein Greater Saphenous Vein * Femoral Vein Popliteal Vein Small Saphenous Vein * Proximal Calf Veins (* superficial vessels) Left Leg: Negative for DVT, Color Doppler imaging shows patency of the vessels. Spectral waveforms a re within normal limits. IMPRESSION: No evidence of deep vein thrombosis of the left lower extremity. [facility], , 11/05/2024 9:46 AM
== END | disposition home or self-care (01) ==
LOC: RADUSWWP 09:06
PROVIDERS: ATTEND Family Medicine
DX: R22.42 Localized swelling, mass and lump, left lower limb (principal)